=== PATIENT | male | born 1955 | race Caucasian/White ===

== ENCOUNTER 2019-01-12 17:45 | Emergency (ER) | payer SELFPAY ==
[2019-01-12 13:51] VITALS: BP 110/84; PULSE 209; RESP 30; TEMP 36.8; O2SAT 99; BMI 27.0
--- NOTE | 2019-01-12 13:51 | NURSING ---
NO OLD EKGS
--- NOTE | 2019-01-12 13:57 | RAD_ITS ---
STUDY: X-RAY CHEST REASON FOR EXAM: Male, 63 years old. Chest pain. TECHNIQUE: Single AP portable view of the chest. COMPARISON: None. FINDINGS: EKG lead tubes are seen. Mild increased linear markings at the lung bases suggestive of mildly atelectasis and/or scarring. There is no demonstrated pleural abnormality. Normal size heart. Normal mediastinum and chandler. Normal visualized pulmonary arteries. There is atherosclerotic tortuosity of the aortic arch and descending thoracic aorta. Normal visualized thoracic spine. Normal visualized ribs, clavicles, and shoulders. There is no demonstrated abnormality of the visualized soft tissue structures of the upper abdomen. RAD/Chest 1 View (Portable) IMPRESSION: Mild degree of increased markings at the lung bases suggestive of linear atelectasis and/or possible scarring. Electronically Signed: Endy Meadows, at 14:42 EDT , Service support ,
[2019-01-12] MEDS: Adenosine 6 MG/2 ML Syringe IV (14:00)
[2019-01-12 14:01] VITALS: BP 98/69; PULSE 92; RESP 25; O2SAT 100
[2019-01-12 14:15] LABS: Absolute Lymphocyte Count 2.27 X10^3/ul (0.83-4.51); Absolute Neutrophil Count 4.3 X10^3/uL (2.0-7.7); Basophil# 0.03 X10^3/uL; Basophil% 0.4 % (0-1); Eosinophil# 0.28 X10^3/uL; Eosinophils% 3.6 % (0-5); Hematocrit 45.7 % (40-54); Hemoglobin 14.7 g/dl (13.0-16.5); Lymphocyte # 2.27 X10^3/ul (4.0); Lymphocyte % 29.4 % (19-41); Mean Corp Hgb Conc 32.2 g/gl (32-36); Mean Corpuscular Hgb 27.7 pg (27.0-32.0); Mean Corpuscular Volume 86.1 fL (80-94); Mean Platelet Vol. 11.8 fl (6.2-12.0); Monocyte% 10.3 % (0-10); Neutrophil # 4.33 X10^3/uL (2.7-7.7); Platelet Count 269 K/mm3 (150-450); RBC Distribution Width CV 16.1 % (11.6-14.6); Red Blood Count 5.31 M/mm3 (4.6-6.2); White Blood Count 7.7 K/mm3 (4.4-11.0)
[2019-01-12 14:23] LABS: Prothrombin Time (Protime)PT. 13.3 SECONDS (11.7-14.9)
[2019-01-12 14:24] LABS: Partial Thromboplast Time 33.8 Seconds (24.1-36.2)
[2019-01-12 14:25] VITALS: BP 92/75; PULSE 84; RESP 12; O2SAT 100
[2019-01-12 14:27] LABS: POSITIVE COUNT NO; POSITIVE DIFFERENTIAL NO; POSITIVE MORPHOLOGY NO
[2019-01-12 14:36] LABS: Anion Gap 5 (5-15); BUN 20 mg/dL (7-18); BUN/Creat Ratio 22.1 RATIO (10-20); Calcium,Total 8.5 mg/dL (8.5-10.1); Chloride 110 mmol/L (98-107); EST Glomerular Filtration Rate 90 mL/min (>60); Est Glom Filt Rate - Afr Amer 109 mL/min (>60); Estimated Creatinine Clearance 80.58 ml/min; Glucose 108 mg/dL (74-106); Magnesium 2.2 mg/dL (1.6-2.6); Potassium 3.9 mmol/L (3.5-5.1); Sodium Level 140 mmol/L (136-145); Thyroid Stim Hormone (TSH) 2.61 uIU/mL (0.358-3.74)
--- NOTE | 2019-01-12 15:05 | ED.VISSUMM ---
- ER Visit Summary Date of Service: 01/12/19 Chief Complaint: Weakness History of Present Illness: The patient is a 63 M who is [facility]. Nurse took his pulse today was over 200. Patient states he feels like he does need to go and lay down. He notes he is too weak to move. He last used methamphetamines 2 days ago. He denies taking any in the [facility]. He is never had SVT before. Physical Examination: Heart rate 209 blood pressure 110/84 temp 98.3 respiratory rate is 30 pulse ox 98% Gen: Well-nourished well-developed Head: Normocephalic atraumatic Eyes: Perrl EOMI ENT: TMs clear no rhinorrhea moist mucous membranes Neck: Supple no lymphadenopathy no JVD nontender CVS: Regular rate tachycardic rhythm no murmurs normal S1-S2 Respiratory: No distress clear to auscultation bilaterally chest nontender Abdomen: Soft nontender nondistended normal bowel sounds no masses Back: Nontender Extremity: Nontender no edema Skin: Pale and diaphoretic Neuro: alert orientated ?3 CN II-XII intact normal strength sensation Psych: Lethargic Test Results: EKG shows a supraventricular tachycardia at a rate of 210. TSH normal 2.61. Magnesium 2.2. Troponin 0 0.111. Chest x-ray negative. Emergency Department Course and Treatment: Patient received a 6 mg dose of adenosine which did him back to a sinus rhythm. He has been observed. The patient now recalls that he has had 2 prior episodes of SVT. He states that he was seen at [facility] for that. Spoke with cardiology Dr. Duke and patient was started on metoprolol. Follow-up in the office Impression: 1. Supraventricular tachycardia 2. Chemical cardioversion This note was generated with [employer] dictation software. It may contain incorrect words, spelling, and punctuation that were not noted in review of the chart prior to signing ED Disposition - Plan for ED Patient: Disposition: Home or Assisted Living Instructions: ED Tachycardia Pat PSVT Prescriptions: Metoprolol Tartrate 50 mg PO DAILY #30 tab Referrals: Luis Duke MD [STAFF PHYSICIAN] -
--- NOTE | 2019-01-12 15:08 | ED.DCSUM_ITS ---
- ER Visit Summary Date of Service: 01/12/19 Chief Complaint: Weakness History of Present Illness: The patient is a 63 M who is been at the assisted for 2 days. Nurse took his pulse today was over 200. Patient states he feels like he does need to go and lay down. He notes he is too weak to move. He last used methamphetamines 2 days ago. He denies taking any in the assisted. He is never had SVT before. Physical Examination: Heart rate 209 blood pressure 110/84 temp 98.3 respiratory rate is 30 pulse ox 98% Gen: Well-nourished well-developed Head: Normocephalic atraumatic Eyes: Perrl EOMI ENT: TMs clear no rhinorrhea moist mucous membranes Neck: Supple no lymphadenopathy no JVD nontender CVS: Regular rate tachycardic rhythm no murmurs normal S1-S2 Respiratory: No distress clear to auscultation bilaterally chest nontender Abdomen: Soft nontender nondistended normal bowel sounds no masses Back: Nontender Extremity: Nontender no edema Skin: Pale and diaphoretic Neuro: alert orientated ?3 CN II-XII intact normal strength sensation Psych: Lethargic Test Results: EKG shows a supraventricular tachycardia at a rate of 210. TSH normal 2.61. Magnesium 2.2. Troponin 0 0.111. Chest x-ray negative. Emergency Department Course and Treatment: Patient received a 6 mg dose of adenosine which did him back to a sinus rhythm. He has been observed. The patient now recalls that he has had 2 prior episodes of SVT. He states that he was seen at [facility] for that. Spoke with cardiology Dr. Duke and patient was started on metoprolol. Follow-up in the office Impression: 1. Supraventricular tachycardia 2. Chemical cardioversion This note was generated with [employer] dictation software. It may contain incorrect words, spelling, and punctuation that were not noted in review of the chart prior to signing ED Disposition - Plan for ED Patient: Disposition: Home or Assisted Living Instructions: ED Tachycardia Pat PSVT Prescriptions: Metoprolol Tartrate 50 mg PO DAILY #30 tab Referrals: Luis Duke MD [STAFF PHYSICIAN] -
[2019-01-12] MEDS: Metoprolol Tartrate 50 MG Tablet PO (15:56)
[2019-01-12 15:57] VITALS: BP 97/86; PULSE 77; RESP 30; O2SAT 98
== END 2019-01-12 17:52 ==
PROVIDERS: Emergency Provider Emergency Medicine
DX: I47.1 Supraventricular tachycardia (principal)
CPT/HCPCS: 71045; 80048; 83735; 84443; 84484; 85025; 85610; 85730; 93005; 96374; 99284; J7030; A4216; J0153